=== PATIENT | female | born 1975 | race American Indian/Alaskan Native ===

== ENCOUNTER 2017-03-17 18:34 | Emergency (ER) | payer OTHER ==
[2017-03-17 19:19] VITALS: BP 131/75; PULSE 89; TEMP 98.4; O2SAT 100
--- NOTE | 2017-03-17 19:47 | C.PDOC ---
History Of Present Illness 41 yo female come in for evaluation of Left shoulder pain intermittent for past 2 months worse for past 2 days. Pain is localized over superior shoulder, intermittent radiation to lateral aspect of Left upper arm, worse with Left shoulder movement. Otherwise, pt denies known trauma or injury, fever, chills, neck pain, CP, SOB, dyspnea, diaphoresis, palpitation, denies weakness, sensory or vascular deficits to Left arm. Ambulate to ED for evaluation, not in any apparent distress. Time Seen by Provider: 03/17/17 19:33 Chief Complaint (Nursing): Upper Extremity Problem/Injury History Per: Patient Past Medical History Reviewed: Historical Data, Nursing Documentation, Vital Signs Vital Signs: Last Vital Signs Temp 98.4 F 03/17/17 19:16 Pulse 89 03/17/17 19:16 Resp 14 03/17/17 19:16 BP 131/75 03/17/17 19:16 Pulse Ox 100 03/17/17 19:47 - Medical History PMH: No Chronic Diseases Surgical History: No Surg Hx Family History: States: Unknown Family Hx - Social History Hx Alcohol Use: No Hx Substance Use: No - Immunization History Hx Tetanus Toxoid Vaccination: Yes (2007) Hx Influenza Vaccination: No Hx Pneumococcal Vaccination: No Review Of Systems Except As Marked, All Systems Reviewed And Found Negative. Constitutional: Negative for: Fever, Chills Eyes: Negative for: Vision Change ENT: Negative for: Throat Pain, Throat Swelling Cardiovascular: Negative for: Chest Pain, Palpitations Respiratory: Negative for: Cough, Shortness of Breath, Wheezing Gastrointestinal: Negative for: Nausea, Vomiting, Abdominal Pain, Diarrhea Musculoskeletal: Positive for: Shoulder Pain Skin: Negative for: Rash, Bruising Neurological: Negative for: Weakness, Numbness, Altered Mental Status, Headache , Dizziness Physical Exam - Physical Exam Appears: Well, Non-toxic, No Acute Distress Skin: Normal Color, Warm, Dry, No Rash, No Ecchymosis Eye(s): bilateral: PERRL Neck: Trachea Midline, No Midline Cervical Tenderness, No Paracervical Tenderness, No Step Off Deformity, Supple Cardiovascular: Rhythm Regular Respiratory: Normal Breath Sounds Back: No CVA Tenderness, No Vertebral Tenderness Extremity: Normal ROM (mild discomfort to Left shoulder extension and abduction) , Tenderness (superior aspect Left shoulder), Capillary Refill (less than 2sec to Left hand), No Deformity, No Swelling Neurological/Psych: Oriented x3, Normal Speech, Normal Motor, Normal Sensation, Normal Reflexes ED Course And Treatment O2 Sat by Pulse Oximetry: 100 Pulse Ox Interpretation: Normal - Other Rad Left shoulder X-Ray: Interpreted by Me, Viewed By Me Interpretation: (-) acute fx or dislocation, (+) mild calcification noted Progress Note: On re-eval, pt is afebrile, hemodynamicaly stable. Non-toxic. Head: AT/NC. Neck: SUpple, (-) JVD, (-) carotid bruits B/L. Lungs: CTA B/L, BS equal B/L. Letf shoulder: exam c/w left shoulder tendonitis. NO defomrity, no neurovascular deficits. no skin changes. Imaging review and appears normal. Pt advised. re.f to F/u with PMD, Ortho in 2-3 days for re-eavl. return if any new changes. Disposition Counseled Patient/Family Regarding: Studies Performed, Diagnosis, Need For Followup, Rx Given - Disposition Disposition: HOME/ ROUTINE Disposition Time: 20:15 Condition: STABLE Additional Instructions: LIGHT DUTY TO LEFT SHOULDER, AVOID LIFTING LEFT ARM TAKE MEDICATION PRESCRIBED FOLLOW UP WITH ORTHOPEDIST IN2 -3 DAYS FOR RE-EVALUATION. RETURN TO ED IF ANY WORSENING OR NEW CHANGES. Prescriptions: Methocarbamol [Robaxin] 500 mg PO TID #14 tab Prednisone [Deltasone] 20 mg PO DAILY #3 tablet traMADol [Ultram] 50 mg PO TID #7 tab Instructions: Calcific Tendinitis (ED) Forms: [facility] (Pashto) - Clinical Impression Clinical Impression: Calcific tendonitis
[2017-03-17 20:55] VITALS: RESP 16
--- NOTE | 2017-03-18 13:15 | RAD ---
PROCEDURE: Radiographs of the Left Shoulder HISTORY: pain COMPARISON: No prior. FINDINGS: BONES: No acute fracture. There is a nonspecific small calcification adjacent to the superior margin of the glenoid common nonspecific. JOINTS: Normal. Glenohumeral and acromioclavicular joints preserved. No osteoarthritis. SOFT TISSUES: Normal. OTHER FINDINGS: None. IMPRESSION: No acute fracture. Small calcification adjacent to the superior glenoid, uncertain significance.
== END 2017-03-17 20:54 | disposition home or self-care (01) ==
LOC: C.ER 18:34
DX: M75.32 Calcific tendinitis of left shoulder (principal)